=== PATIENT | female | born 1990 | race African-American/Black ===

== ENCOUNTER 2017-03-12 22:02 | Emergency (ER) | payer OTHER ==
[2017-03-12 22:21] VITALS: BP 120/54
[2017-03-12] MEDS ORDERED: PRED20TA PO (22:56)
[2017-03-12] MEDS ORDERED: PROAIR HFA8.5 GM INH (22:56)
--- NOTE | 2017-03-12 22:56 | PHYS DOC ---
Past Medical History Past Medical History: Asthma Past Surgical History: Alcohol Use: None Drug Use: None Adult General Chief Complaint Chief Complaint: Congestion HPI HPI Patient is a 26 year old female presents to the emergency department stating that she has a weeks she has had a cough cold and congestion for the last 3 weeks. Patient states that she called ask a nurse and they provided her with the medications that she could take [id number] to help with her symptoms. She states that she also called her [employer] who also provided her with recommendations. Patient states that she continues to have a cough cold and wheezing. She states that she has utilized her son's albuterol inhaler with minimal relief. Patient states that she does have a history of asthma however does not have her own inhaler. Review of Systems Review of Systems Constitutional: Denies fever or chills [] Eyes: Denies change in visual acuity, redness, or eye pain [] HENT: Denies nasal congestion or sore throat [] Respiratory: Cough congestion and wheezing Cardiovascular: No additional information not addressed in HPI [] GI: Denies abdominal pain, nausea, vomiting, bloody stools or diarrhea [] : Denies dysuria or hematuria [] Musculoskeletal: Denies back pain or joint pain [] Integument: Denies rash or skin lesions [] Neurologic: Denies headache, focal weakness or sensory changes [] Endocrine: Denies polyuria or polydipsia [] All other systems were reviewed and found to be within normal limits, except as documented in this note. Current Medications Current Medications Current Medications Medications (Trade) Dose Ordered Sig/Forest Start Time Stop Time Status Last Admin Dose Admin Albuterol/ Ipratropium (Duoneb) 3 ml 1X ONCE 03/12/17 23:15 03/12/17 23:16 DC 03/12/17 23:04 3 ML Allergies Allergies Allergies Coded Allergies Type Severity Reaction Last Updated Verified No Known Drug Allergies 03/12/17 No Physical Exam Physical Exam Constitutional: Well developed, well nourished, no acute distress, non-toxic appearance. [] HENT: Normocephalic, atraumatic, bilateral external ears normal, oropharynx moist, no oral exudates, nose normal. Bilateral tympanic membranes appear to be normal. Throat with no erythematous noted no exudate noted. No anterior cervical adenopathy noted Eyes: PERRLA, EOMI, conjunctiva normal, no discharge. [] Neck: Normal range of motion, no tenderness, supple, no stridor. [] Cardiovascular:Heart rate regular rhythm, no murmur [] Lungs & Thorax: Bilateral breath sounds with wheezes noted posteriorly. Skin: Warm, dry, no erythema, no rash. [] Extremities: No tenderness, no cyanosis, no clubbing, ROM intact, no edema. [] Neurologic: Alert and oriented X 3, normal motor function, normal sensory function, no focal deficits noted. [] Psychologic: Affect normal, judgement normal, mood normal. [] Current Patient Data Vital Signs Vital Signs Date Time Temp Pulse Resp B/P (MAP) Pulse Ox O2 Delivery O2 Flow Rate FiO2 03/12/17 23:05 98 Room Air 03/12/17 22:21 98.1 64 18 120/54 (76) 98.1 EKG EKG [] Radiology/Procedures Radiology/Procedures [] Course & Med Decision Making Course & Med Decision Making Pertinent Labs and Imaging studies reviewed. (See chart for details) Patient provider with duoneb treatment. Patient with breath sounds clear. Patient will be placed on Prednisone with proair provided. Keflex will be prescribed since she has been sick for the last 3 weeks. Patient will be discharged home in stable condition. Signs and symptoms to return to the emergency department has been provided. All questions and concerns have been answered at the patients bedside. [] Dragon Disclaimer Dragon Disclaimer This electronic medical record was generated, in whole or in part, using a voice recognition dictation system. Departure Departure Impression: Primary Impression: URI (upper respiratory infection) Disposition: 01 HOME, SELF-CARE Condition: STABLE Patient Instructions: Upper Respiratory Infection, Adult, [id number] Additional Instructions: Activity as tolerated Medication as prescribed Tylenol for fever, chills or generalized body aches Drink plenty of fluids. Followup with your primary care provider in 5-7 days Return to emergency department as needed for signs and symptoms that become worse. Scripts Cephalexin (CEPHALEXIN) 500 Mg Tablet 1 TAB PO BID, #20 TAB Prov: JANIESHIRINJEANIE M STAFF REGISTERED NURSE 03/12/17 Albuterol Sulfate (PROAIR HFA INHALER) 8.5 Gm Hfa.aer.ad 1 PUFF INH PRN Q6HRS Y for SHORTNESS OF BREATH, #1 INHALER 0 Refills Prov: JEANIE LIMA APRN 03/12/17 Prednisone (PREDNISONE) 20 Mg Tablet 40 MG PO DAILY for 7 Days, #14 TAB Prov: JEANIE LIMA APRN 03/12/17 Problem Qualifiers Primary Impression: URI (upper respiratory infection) URI type: unspecified URI Qualified Codes: J06.9 - Acute upper respiratory infection, unspecified JEANIE LIMA APRN Mar 12, 2017 22:56
[2017-03-12] MEDS ORDERED: IPRATRPIUM/ALBUTEROL 0.5/2.5MG 3 ML NEBU. NEB ONE (23:15)
[2017-03-12] MEDS ORDERED: CEPH500T PO (23:17)
== END 2017-03-12 23:23 | disposition home or self-care (01) ==
LOC: ER 22:02
DX: O99.519 Diseases of the respiratory system complicating pregnancy, unspecified trimester (principal); J06.9 Acute upper respiratory infection, unspecified; J45.909 Unspecified asthma, uncomplicated; Z3A.00 Weeks of gestation of pregnancy not specified
CPT/HCPCS: 94640; 99283; J7620